=== PATIENT | female | born 1950 | race Caucasian/White ===

== ENCOUNTER 2024-06-26 15:32 | Emergency (ER) | payer MEDICARE, OTHER, SELFPAY ==
[2024-06-26 15:33] VITALS: BP 112/57; PULSE 70; RESP 19; TEMP 36.8; O2SAT 94; BMI 25.0
--- NOTE | 2024-06-26 15:53 | CT_ITS ---
STUDY: CT ABDOMEN AND PELVIS WITHOUT CONTRAST REASON FOR EXAM: Female, 73 years old. low back pain RADIATION DOSAGE (If Supplied By Facility): CTDIvol = ( 7.79 ) mGy, DLP = ( 369.73 ) mGycm TECHNIQUE: Transaxial images were obtained from the dome of the diaphragm to the symphysis pubis without oral contrast, and without intravenous contrast. Sagittal and coronal images were reconstructed. Individualized dose optimization techniques were used for this CT. COMPARISON: None. FINDINGS: In the visualized lung bases, irregular areas of pulmonary density are seen in the right middle lobe and anterior right lung base, in the left anterior cardiophrenic angle, and in the left posterior costophrenic angle. These findings are most consistent with parenchymal scarring but recommend CT of the chest. Normal liver. Normal gallbladder and extrahepatic biliary system. Normal spleen. Normal pancreas. Normal bilateral adrenal glands. Normal right kidney. Normal left kidney. Evaluation of the GI tract is limited by absence of oral contrast. Cannot exclude stomach wall thickening. No dilated loops of bowel or evidence for obstruction. Cannot exclude segmental thickening of the floyd of the small or large bowel. Cannot exclude enteritis or colitis. Moderate diffuse fecal retention. Diverticulosis without definite diverticulitis. Previous partial right colectomy. There is diffuse atherosclerotic calcification of the abdominal aorta, without a demonstrated aneurysm. Normal inferior vena cava. Normal retroperitoneum. Normal urinary bladder. There is absence of the uterus consistent with a prior hysterectomy. Normal abdominal wall. There are diffuse degenerative changes of the visualized lumbar spine. There is demineralization. There are compression fractures are T12, L3, and L5 of indeterminate age. CT/Abdomen/Pelvis without Cont IMPRESSION: No definite acute or significant abnormality seen within the abdomen or pelvis. Several compression fractures of indeterminate age.. Electronically Signed: Santos Billy MD at 16:47 EST ,
--- NOTE | 2024-06-26 15:54 | EDS_ITS ---
HPI History of Present Illness Chief Complaint: Back Detail of Chief Complaint: Back pain Informant: patient Narrative Narrative: Patient presents with low back pain that started about 2 weeks ago. She denies injury. She states it came on gradually. Denies any pain rating down her legs or paresthesias. She denies weakness in the extremities. She had so much pain today that she could not get out of her lift chair so they called EMS for her. She states that earlier today she had some pain, radiating around to the front of the abdomen. Not having abdominal pain currently. She has had no fever. She denies urinary symptoms. She denies loss of bowel or bladder function. PFSH PFSH Home Medications ?Medication ?Instructions ?Recorded ?Last Taken ?Type famotidine 10 mg tablet (Pepcid AC) 10 mg PO PRN PRN Heartburn 04/14/15 Unknown History oxycodone-acetaminophen 5 mg-325 1 tab PO Q6H PRN PRN Pain ##10 04/25/15 Unknown Rx mg tablet diazepam 5 mg tablet (Valium) 5 mg PO BID PRN muscle spasm 10 06/26/24 Unknown Rx days #20 tabs oxycodone-acetaminophen 5 mg-325 1 tab PO Q8H PRN pain 3 days #15 06/26/24 Unknown Rx mg tablet (Percocet) tabs sulfamethoxazole 800 1 tab PO BID #6 tabs 06/26/24 Unknown Rx mg-trimethoprim 160 mg tablet (Bactrim DS) Allergy/AdvReac Type Severity Reaction Status Date / Time coconut oil Allergy Itching Verified 06/26/24 15:39 hydrocodone bitartrate (From AdvReac nightmares Verified 06/26/24 15:39 Vicodin) Social History Smoking Status: Current every day smoker tobacco type: cigarettes ROS ROS ED Review of Systems ROS Unobtainable: other Constitutional Constitutional ED: Reports lethargy; Denies chills, fever(s), sweats or weight loss Eyes Eyes: Denies blurry vision, change in vision or diplopia ENT ENT ED: Denies rhinorrhea or sore throat Cardiovascular Cardiovascular: Denies chest pain, orthopnea or racing heartbeat Respiratory/Chest Respiratory/Chest: Denies cough, dyspnea, dyspnea on exertion, orthopnea or sputum Gastrointestinal Gastrointestinal: Denies abdominal pain, diarrhea, nausea or vomiting Genitourinary Genitourinary ED: Denies dysuria, hematuria or urinary frequency Musculoskeletal Musculoskeletal: Reports back pain; Denies arthralgias, myalgias or neck pain Integumentary Denies abscess, Abrasions or rash Neurologic Neurologic: Denies headache(s) or weakness Psychiatric Psychiatric: Denies anxiety, depression or suicidal thoughts Endocrine Endocrinology: Denies polydipsia, polyphagia or polyuria Hematologic/Lymphatic Hematologic/Lymphatic: Denies easy bleeding, easy bruising or lymphadenopathy Allergic/Immunologic Allergic/Immunologic ED: Denies mouth swelling, tongue swelling or urticaria EXAM Physical Exam Const Vital Signs: 06/26/24 15:33 06/26/24 18:01 Temperature 98.3 F 97.2 F L Temperature Source Oral Pulse Rate 70 81 Respiratory Rate 19 H 15 Blood Pressure 112/57 L 121/76 H Blood Pressure Mean 75 91 Pulse Ox 94 98 Oxygen Delivery Method Room Air Positive well nourished and well developed General Appearance ED: well developed and NAD HEENT Reports TM's clear and moist mucous membranes normocephalic and atraumatic; Negative for trauma or tenderness Tympanic Membrane ED: Yes TM's clear Eyes PERRL and EOMs intact bilaterally General Eye ED: Negative for pale conjunctiva or scleral icterus Neck no lymphadenopathy, supple and no JVD General: Negative for tenderness Chest Wall inspection of chest normal and palpation of chest normal Chest: Negative for tenderness Resp normal respiratory effort and clear to auscultation bilaterally Effort and Inspection: Negative for respiratory distress or pain with movement Auscultation: Negative for rhonchi, wheezes or diminished lung sounds Cardio regular rate, regular rhythm, S1 normal heart sound, S2 normal heart sound and no murmurs Peripheral Pulses: pulses 2+ throughout GI normal to inspection, nondistended, normoactive bowel sounds, soft to palpation, non-tender, non-distended and no masses Back/Spine no CVA tenderness Back/Spine Narrative: Diffuse tenderness over the lower lumbar spine and lumbar paraspinal musculature. No erythema or warmth noted. Negative straight leg raises. Deep tendon reflexes are plus 2 out of 4 bilaterally at the patella and Achilles. She has normal 5 extension bilaterally. Normal sensation to light touch. Extremity normal to inspection General Extremety ED: Negative for edema General Extremity: Negative for edema Neuro oriented x3, CN's II-XII intact bilaterally, no sensory deficits noted and gait normal Sensorium / Orientation: awake, alert, oriented to person, oriented to place and oriented to time Motor Exam: strength 5/5 throughout and strength abnormal Psych mental status grossly normal Skin no rashes or lesions noted and no wounds MDM MDM MDM Narrative Medical decision making narrative: Patient presents with back pain that she has had for over 2 weeks. Initially denied trauma but then remembers stumbling off some steps with catching herself and not actually falling. Patient initially denied urinary symptoms but later stated that she has had some frequency. She denies fevers or chills or sweats. Patient had a urinalysis obtained that showed positive nitrites and 500 leukocyte esterase and +2 bacteria. I did send off culture. Patient also had a CT scan of the abdomen pelvis without contrast that showed no evidence of kidney stones. There was no definitive intra-abdominal process. She did have several compression fractures of indeterminate age at T12 and lumbar spine. L3 and L5 also. Patient had been given fentanyl 25 mcg IV by squad prior to arrival. I did give her Valium 4 mg p.o. and I will start her on Bactrim for suspected UTI as well. Patient felt markedly improved after treatment. She would like to go home. There are no cauda equina-like signs or symptoms and she has no radiculopathy type signs and symptoms. Patient will be referred to Dr. Chappell who is a back specialist for follow-up as well. Patient will be started on Valium and Percocet for pain. She is advised to take the pain medicine with food and to take a daily stool softener. Lab Data Attestation: I reviewed the patient's lab results. Labs: Laboratory Results - last 24 hr 06/26/24 16:07 Urine Color Yellow Urine Clarity Clear Urine pH 6.0 Ur Specific [place] 1.015 Urine Protein 15 H Urine Glucose (UA) Normal Urine Ketones Negative Urine Occult Blood 10 H Urine Nitrite Positive H Urine Bilirubin Negative Urine Urobilinogen 1 H Ur Leukocyte Esterase 500 H Urine RBC 0 SEEN Urine WBC 5-10 SEEN Ur Squamous Epith Cells 0-5 SEEN Urine Bacteria 2+ Urine Mucus 0 SEEN Radiography Diagnostic Testing: Clinical Impression(s) from Imaging Studies Abdomen/Pelvis CT 06/26/24 15:53 IMPRESSION: No definite acute or significant abnormality seen within the abdomen or pelvis. Several compression fractures of indeterminate age.. Electronically Signed: Santos Billy MD at 16:47 EST , Discharge Plan Triage Chief Complaint: Back ED Provider: Clarita Fields Dx/Rx/DC Orders Clinical Impression: Back pain, Acute UTI Instructions: ED Back Spasm, No Trauma, ED UTIs Women Prescriptions: New oxycodone-acetaminophen [Percocet] 5-325 mg tablet 1 tab PO Q8H PRN (Reason: pain) 3 Days Qty: 15 0RF sulfamethoxazole-trimethoprim [Bactrim DS] 800-160 mg tablet 1 tab PO BID Qty: 6 0RF diazepam [Valium] 5 mg tablet 5 mg PO BID PRN (Reason: muscle spasm) 10 Days Qty: 20 0RF No Action famotidine [Pepcid AC] 10 MG tablet 10 mg PO PRN PRN (Reason: Heartburn) Patient Comments: heartburn, nausea oxycodone-acetaminophen 1 TABLET tablet 1 tab PO Q6H PRN PRN (Reason: Pain) Qty: 10 0RF Patient Comments: pain Primary Care Provider: Care Physician,No Primary Referrals: Olu Hinton MD [Med Staff - Active Staff] - 5-7 Days Vj Carnes MD [Non-Staff] - Print Language: Tajik Disposition Disposition: Home, Self Care Discharge Date/Time: 06/26/24 18:02
[2024-06-26] MEDS: diazePAM 2 MG Tablet 4 MG PO (16:08)
[2024-06-26 16:20] LABS: Mucous, Urine 0 SEEN /hpf (<or=2+); Red Blood Cells-Urine 0 SEEN /hpf (0-5)
[2024-06-26 16:35] LABS: Color, Urine Yellow (Yellow); Glucose, Dipstick Normal (Normal); Ketone-Dipstick Negative (Negative); Leukocyte Esterase-Dipstick 500 /ul (Negative); Nitrite-Dipstick Positive (Negative); Occult Blood-Urine 10 /ul (Negative); Protein-Dipstick 15 mg/dl (Negative); Specific Gravity, Urine 1.015 (1.002-1.030); Urine Bilirubin Dipstick Negative (Negative); Urine Clarity Clear (Clear); Urine Urobilinogen 1 mg/dl (Normal)
--- NOTE | 2024-06-26 16:39 | CM.ED ---
Social Work Reason for visit: No PCP listed Patient verified that she does not have a PCP at this time, resource list provided with local physicians. Patient accepting of same. Celi Coto, DEVELOPMENT WRITER, [employer]HW[employer]
[2024-06-26 17:19] LABS: Bacteria 2+ /hpf (None Seen); Squamous Epithelial Cells - UA 0-5 SEEN /hpf (5-10); White Blood Cells 5-10 SEEN /hpf (0-5)
[2024-06-26 18:01] VITALS: BP 121/76; PULSE 81; RESP 15; TEMP 36.2; O2SAT 98
== END 2024-06-26 18:02 | disposition home or self-care (01) ==
PROVIDERS: Emergency Provider Emergency Medicine; Referring Provider Emergency Medicine; Visit Provider Emergency Medicine
DX: N39.0 Urinary tract infection, site not specified (principal); M48.56XA Collapsed vertebra, not elsewhere classified, lumbar region, initial encounter for fracture; M48.54XA Collapsed vertebra, not elsewhere classified, thoracic region, initial encounter for fracture; F17.210 Nicotine dependence, cigarettes, uncomplicated
CPT/HCPCS: 74176; 81001; 87086; 87088; 87186; 99285